=== PATIENT | female | born 1940 | race Caucasian/White ===

== ENCOUNTER 2017-08-08 06:22 | Day surgery (SDC) | payer MEDICARE ==
[~2017-08-08] VITALS: Ht 161.3 cm; Wt 67.1 kg
[~2017-08-08 06:22] MED LIST changes: -AMLO10TA2 PO; -DOCU-131 PO; -ERGO500017 PO; -LEVO112T4 PO; -LEVO175T2 PO; -MAGN64TA9 PO; -OXYC5TAB3 PO; -PANT40TA5 PO; -POLY17PO5 PO; -POTA20TA6 PO
[2017-08-08 07:00] VITALS: BP 139/83
[2017-08-08] MEDS ORDERED: AMLO10TA2 PO (07:07)
[2017-08-08] MEDS ORDERED: LEVO112T4 PO (07:07)
[2017-08-08] MEDS ORDERED: LACTATED RINGERS 1,000 ML IV SCH (07:08)
[2017-08-08] MEDS ORDERED: hydrALAzine 20 MG/ML, 1ML IV PRN (07:30)
[2017-08-08] MEDS ORDERED: LABETALOL 5MG/ML, 20ML IV PRN (07:30)
[2017-08-08] MEDS ORDERED: HYDROmorphone 1 MG/ML, 1ML IV PRN (07:30)
[2017-08-08] MEDS ORDERED: FENTANYL PF 100 MCG/2ML IV PRN (07:30)
[2017-08-08] MEDS ORDERED: MEPERIDINE/PF 25MG/0.5ML IVPush PRN (07:30)
[2017-08-08] MEDS ORDERED: PROMETHAZINE 25 MG/ML, 1ML IV PRN (07:30)
[2017-08-08] MEDS ORDERED: ONDANSETRON 2MG/ML, 2ML IVPush PRN (07:30)
[2017-08-08] MEDS ORDERED: OXYcodone 5 MG/5 ML ORAL.SOL UDC PO PRN (07:30)
[2017-08-08] MEDS ORDERED: PROPOFOL 10 MG/ML, 20ML ONE (07:34)
[2017-08-08] MEDS ORDERED: OXYcodone 5 MG/5 ML ORAL.SOL UDC ONE (08:14)
== END 2017-08-08 09:30 | disposition home or self-care (01) ==
LOC: OUT 06:22
PROVIDERS: ATTEND Surgery
DX: C20 Malignant neoplasm of rectum (principal); K63.5 Polyp of colon; E78.00 Pure hypercholesterolemia, unspecified; I10 Essential (primary) hypertension; E03.9 Hypothyroidism, unspecified; G89.4 Chronic pain syndrome; Z87.39 Personal history of other diseases of the musculoskeletal system and connective tissue; Z98.890 Other specified postprocedural states; Z90.710 Acquired absence of both cervix and uterus
CPT/HCPCS: 45378; 93005; J2704; J7120

== ENCOUNTER → 2017-08-08 | Outpatient (CLI) | payer MEDICARE ==
[~2017-08-08] MED LIST: AMLO10TA2 PO; ATEN100T PO; DOCU-131 PO; ERGO500017 PO; FENO145T32 PO; LEVO112T4 PO; LEVO150T5 PO; LEVO175T2 PO; MAGN64TA9 PO; MAGNESIUM PO; METO10TA82 PO; MULT-658 PO; ONDA4TAB7 PO; OXYC-302 PO; OXYC5TAB3 PO; PANT40TA5 PO; POLY17PO5 PO; POTA20TA6 PO
== END | disposition home or self-care (01) ==
LOC: WOUND 10:20
PROVIDERS: ATTEND Family Medicine
DX: Z93.3 Colostomy status (principal); E03.9 Hypothyroidism, unspecified; I10 Essential (primary) hypertension; E78.5 Hyperlipidemia, unspecified; Z85.048 Personal history of other malignant neoplasm of rectum, rectosigmoid junction, and anus; Z90.710 Acquired absence of both cervix and uterus; Z85.42 Personal history of malignant neoplasm of other parts of uterus
CPT/HCPCS: G0463; WOU0463

== ENCOUNTER 2017-08-10 09:08 | Inpatient (IN) | payer MEDICARE ==
[~2017-08-10] VITALS: Ht 160 cm; Wt 60.2 kg
[~2017-08-10 09:08] MED LIST changes: +AMLO10TA2 PO; +BUPIVACAINE/PF 0.5% ONE; +LEVO112T4 PO
[2017-08-10 09:51] VITALS: BP 125/72
[2017-08-10] MEDS ORDERED: LACTATED RINGERS 1,000 ML IV SCH (10:02)
[2017-08-10] MEDS ORDERED: ROCURONIUM 10 MG/ML,10ML ONE (10:25)
[2017-08-10] MEDS ORDERED: PROPOFOL 10 MG/ML, 20ML ONE (10:25)
[2017-08-10] MEDS ORDERED: ROPIvacaine/PF 0.2%, 20 ML ONE ×2 (10:26)
[2017-08-10] MEDS ORDERED: DEXAMETHASONE 4 MG/ML, 1ML ONE ×4 (10:27→10:54)
[2017-08-10] MEDS ORDERED: EPINEPHRINE 1 MG/ML, 1ML ONE (10:28)
[2017-08-10] MEDS ORDERED: CEFOTETAN PMX 2GM/50ML 50 ML ONE (10:30)
[2017-08-10 10:38] LABS: BASOPHILS % (AUTO) 0 % (0-1); EOSINOPHILS # (AUTO) 0.01 x10^3/uL (0-0.4); EOSINOPHILS % (AUTO) 0 % (1-7); LYMPHOCYTES # (AUTO) 0.84 x10^3/uL (1-3.4); LYMPHOCYTES % (AUTO) 6 % (22-44); MD NO; MEAN CORPUSCULAR HEMOGLOBIN 29.4 pg (27.0-34.8); MEAN CORPUSCULAR HGB CONC 33.1 g/dL (32.4-35.8); MEAN CORPUSCULAR VOLUME 88.9 fL (80-100); MEAN PLATELET VOLUME 7.9 fL (7.4-10.4); MONOCYTES # (AUTO) 0.79 x10^3/uL (0.2-0.8); MONOCYTES % (AUTO) 6 % (2-9); NEUTROPHILS # (AUTO) 12.34 x10^3/uL (1.8-6.8); NEUTROPHILS % (AUTO) 88 % (42-75); PLATELET COUNT 387 x10^3/uL (130-400); RED BLOOD COUNT 3.02 x10^6/uL (3.82-5.3); RED CELL DISTRIBUTION WIDTH 17.4 % (9.6-15.2)
[2017-08-10 10:46] LABS: INTERNATIONAL NORMALIZED RATIO 1.02 (0.93-1.1); PROTHROMBIN TIME 10.5 Seconds (9.6-11.5)
[2017-08-10 10:51] LABS: CALCIUM 7.9 mg/dL (8.5-10.1); CHLORIDE 102 mmol/L (98-107)
[2017-08-10] MEDS ORDERED: FENTANYL PF 100 MCG/2ML ONE ×2 (10:53)
[2017-08-10] MEDS ORDERED: MIDAZOLAM 1 MG/ML, 2ML ONE (10:53)
[2017-08-10] MEDS ORDERED: ONDANSETRON 2MG/ML, 2ML ONE (10:54)
[2017-08-10 11:08] LABS: ANION GAP 11 mmol/L (5-15)
[2017-08-10] MEDS ORDERED: hydrALAzine 20 MG/ML, 1ML IVPush PRN (14:00)
[2017-08-10] MEDS ORDERED: POLYETHYLENE GLYCOL 17 GM PACKET PO PRN (14:00)
[2017-08-10] MEDS ORDERED: OXYcodone/APAP 5/325MG TABLET PO PRN (14:30)
[2017-08-10 14:52] VITALS: BP 102/63
[2017-08-10] MEDS: morphine SULFATE 10 MG/ML, 1ML IVPush PRN ×2 (15:01→19:49)
[2017-08-10 15:14] LABS: HEMOGLOBIN A1C 5.3 % (4.2-6.3)
[2017-08-10 15:23] LABS: FREE T4 (FREE THYROXINE) 0.17 ng/dL (0.76-1.46); THYROID STIMULATING HORMONE 95.3 mIU/L (0.358-3.740)
[2017-08-10] MEDS ORDERED: IRON SUCROSE COMPLEX 100MG/5ML IV ONE (15:30)
[2017-08-10] MEDS ORDERED: POTASSIUM CHLORIDE 40 MEQ in SODIUM CHLORIDE 0.9% 500 ML IV ONE ×2 (15:30→23:00)
[2017-08-10] MEDS: OXYcodone IR 5MG TABLET PO PRN ×2 (16:19→21:42)
[2017-08-10 16:56] LABS: MICROSCOPIC AUTO
[2017-08-10 16:59] LABS: CULTURE INDICATED? YES
[2017-08-10 19:17] VITALS: BP 118/66
[2017-08-10] MEDS: SODIUM CHLORIDE 0.9% 1,000 ML IV SCH (21:00)
[2017-08-10] MEDS ORDERED: DOCUSATE 100 MG CAPSULE PO PRN (21:00)
[2017-08-11 00:38] VITALS: BP 100/55
[2017-08-11] MEDS: morphine SULFATE 10 MG/ML, 1ML IVPush PRN ×5 (01:28→21:12)
[2017-08-11] MEDS: OXYcodone IR 5MG TABLET PO PRN ×5 (02:52→22:03)
[2017-08-11 05:18] LABS: MEAN CORPUSCULAR HEMOGLOBIN 29.9 pg (27.0-34.8); MEAN CORPUSCULAR HGB CONC 33.3 g/dL (32.4-35.8); MEAN CORPUSCULAR VOLUME 89.9 fL (80-100); MEAN PLATELET VOLUME 8.1 fL (7.4-10.4); PLATELET COUNT 427 x10^3/uL (130-400); RED BLOOD COUNT 3.09 x10^6/uL (3.82-5.3); RED CELL DISTRIBUTION WIDTH 17.7 % (9.6-15.2)
[2017-08-11 05:26] LABS: ALBUMIN 2.1 g/dL (3.4-5.0); ANION GAP 10 mmol/L (5-15); CALCIUM 7.7 mg/dL (8.5-10.1); CHLORIDE 105 mmol/L (98-107)
[2017-08-11 05:38] LABS: ALANINE AMINOTRANSFERASE 9 U/L (12-78); ALKALINE PHOSPHATASE 189 U/L (45-117); BILIRUBIN,TOTAL 0.4 mg/dL (0.2-1.0); CHOL/HDL RATIO 3.4; CHOLESTEROL, TOTAL 133 mg/dL (140-239); CREATININE 0.82 mg/dL (0.55-1.02); HDL CHOL % 29 % (28-40); HDL CHOLESTEROL (DIRECT) 39 mg/dL (40-60); LDL CHOLESTEROL,CALCULATED 56 mg/dL (54-169); LDL/HDL RATIO 1.4 (0.5-3.0); TOTAL PROTEIN 5.4 g/dL (6.4-8.2); TRIGLYCERIDES 191 mg/dL (50-200); VLDL CHOLESTEROL 38 mg/dL (0-25)
[2017-08-11] MEDS ORDERED: LEVOTHYROXINE 112 MCG TABLET PO SCH (06:00)
[2017-08-11 06:09] LABS: BASOPHILS # (AUTO) 0.03 x10^3/uL (0-0.1); BASOPHILS % (AUTO) 0 % (0-1); EOSINOPHILS # (AUTO) 0.02 x10^3/uL (0-0.4); EOSINOPHILS % (AUTO) 0 % (1-7); LYMPHOCYTES # (AUTO) 1.88 x10^3/uL (1-3.4); LYMPHOCYTES % (AUTO) 10 % (22-44); MD SCAN; MONOCYTES # (AUTO) 1.07 x10^3/uL (0.2-0.8); MONOCYTES % (AUTO) 6 % (2-9); NEUTROPHILS # (AUTO) 15.17 x10^3/uL (1.8-6.8); NEUTROPHILS % (AUTO) 84 % (42-75)
[2017-08-11 07:33] VITALS: BP 114/67
[2017-08-11] MEDS: FENOFIBRATE 145 MG TABLET PO SCH (08:11)
[2017-08-11] MEDS: ATENOLOL 100 MG TABLET PO SCH (08:11)
[2017-08-11] MEDS: AMLODIPINE 5 MG TABLET PO SCH (08:11)
[2017-08-11] MEDS: SODIUM CHLORIDE 0.9% 1,000 ML IV SCH (09:45)
[2017-08-11] MEDS ORDERED: POTASSIUM CHLORIDE 40 MEQ in SODIUM CHLORIDE 0.9% 500 ML IV ONE ×2 (10:30→18:00)
[2017-08-11] MEDS: ERGOCALCIFEROL 50,000 UNIT CAPSULE PO SCH (12:17)
[2017-08-11 14:29] VITALS: BP 101/69
[2017-08-11 19:08] VITALS: BP 110/55
[2017-08-12 00:26] VITALS: BP 107/63
[2017-08-12] MEDS: morphine SULFATE 10 MG/ML, 1ML IVPush PRN ×3 (00:27→09:49)
[2017-08-12] MEDS: OXYcodone IR 5MG TABLET PO PRN ×3 (05:37→20:16)
[2017-08-12] MEDS: LEVOTHYROXINE 150 MCG TABLET PO SCH (05:40)
[2017-08-12 05:45] LABS: CALCIUM 7.6 mg/dL (8.5-10.1); CHLORIDE 107 mmol/L (98-107)
[2017-08-12 05:48] LABS: ANION GAP 9 mmol/L (5-15); CREATININE 0.66 mg/dL (0.55-1.02)
[2017-08-12 07:03] LABS: BASOPHILS # (AUTO) 0.02 x10^3/uL (0-0.1); BASOPHILS % (AUTO) 0 % (0-1); EOSINOPHILS # (AUTO) 0.01 x10^3/uL (0-0.4); EOSINOPHILS % (AUTO) 0 % (1-7); LYMPHOCYTES # (AUTO) 1.37 x10^3/uL (1-3.4); LYMPHOCYTES % (AUTO) 9 % (22-44); MD NO; MEAN CORPUSCULAR HEMOGLOBIN 29.6 pg (27.0-34.8); MEAN CORPUSCULAR HGB CONC 33.2 g/dL (32.4-35.8); MEAN CORPUSCULAR VOLUME 89.3 fL (80-100); MEAN PLATELET VOLUME 8.7 fL (7.4-10.4); MONOCYTES # (AUTO) 0.81 x10^3/uL (0.2-0.8); MONOCYTES % (AUTO) 6 % (2-9); NEUTROPHILS # (AUTO) 12.31 x10^3/uL (1.8-6.8); NEUTROPHILS % (AUTO) 85 % (42-75); PLATELET COUNT 331 x10^3/uL (130-400); RED BLOOD COUNT 2.73 x10^6/uL (3.82-5.3); RED CELL DISTRIBUTION WIDTH 17.9 % (9.6-15.2)
[2017-08-12 07:54] VITALS: BP 110/57
[2017-08-12] MEDS: ATENOLOL 100 MG TABLET PO SCH (09:01)
[2017-08-12] MEDS: AMLODIPINE 5 MG TABLET PO SCH (09:02)
[2017-08-12] MEDS: FENOFIBRATE 145 MG TABLET PO SCH (09:02)
[2017-08-12] MEDS ORDERED: POTASSIUM PHOSPHATE 44 MEQ in SODIUM CHLORIDE 0.9% 500 ML IV ONE (12:00)
[2017-08-12] MEDS ORDERED: POTASSIUM CHLORIDE 40 MEQ in SODIUM CHLORIDE 0.9% 500 ML IV ONE (12:00)
[2017-08-12] MEDS ORDERED: POTASSIUM PHOSPHATE IV ONE (12:30)
[2017-08-12] MEDS ORDERED: SODIUM CHLORIDE 0.9% IV ONE (12:30)
[2017-08-12] MEDS ORDERED: POTASSIUM CHLORIDE IV ONE (12:30)
[2017-08-12] MEDS: POTASSIUM CHLORIDE 20 MEQ TAB.ER.PRT PO SCH ×2 (12:53→20:17)
[2017-08-12] MEDS: OxyconTIN ER 10 MG TAB.ER PO SCH (12:53)
[2017-08-12 13:11] VITALS: BP 97/46
[2017-08-13] VITALS (9 sets, daily range): BP systolic 88–121; BP diastolic 47–81
[2017-08-13] MEDS: OxyconTIN ER 10 MG TAB.ER PO SCH ×2 (00:44→12:18)
[2017-08-13] MEDS: OXYcodone IR 5MG TABLET PO PRN ×3 (03:42→20:18)
[2017-08-13] MEDS: LEVOTHYROXINE 150 MCG TABLET PO SCH (05:27)
[2017-08-13 05:34] LABS: BASOPHILS % (AUTO) 1 % (0-1); EOSINOPHILS # (AUTO) 0.01 x10^3/uL (0-0.4); EOSINOPHILS % (AUTO) 0 % (1-7); LYMPHOCYTES # (AUTO) 1.41 x10^3/uL (1-3.4); LYMPHOCYTES % (AUTO) 10 % (22-44); MD NO; MEAN CORPUSCULAR HGB CONC 33.5 g/dL (32.4-35.8); MEAN CORPUSCULAR VOLUME 89.8 fL (80-100); MEAN PLATELET VOLUME 8.4 fL (7.4-10.4); MONOCYTES # (AUTO) 0.86 x10^3/uL (0.2-0.8); MONOCYTES % (AUTO) 6 % (2-9); NEUTROPHILS # (AUTO) 11.36 x10^3/uL (1.8-6.8); NEUTROPHILS % (AUTO) 83 % (42-75); PLATELET COUNT 348 x10^3/uL (130-400); RED BLOOD COUNT 2.63 x10^6/uL (3.82-5.3); RED CELL DISTRIBUTION WIDTH 18.2 % (9.6-15.2)
[2017-08-13 05:40] LABS: CHLORIDE 107 mmol/L (98-107)
[2017-08-13 05:54] LABS: ANION GAP 8 mmol/L (5-15); CALCIUM 7.8 mg/dL (8.5-10.1); CREATININE 0.62 mg/dL (0.55-1.02)
[2017-08-13] MEDS ORDERED: MAGNESIUM SULFATE PMX 2GM/50ML 50 ML IV ONE (09:00)
[2017-08-13] MEDS: ATENOLOL 100 MG TABLET PO SCH (09:00)
[2017-08-13] MEDS: AMLODIPINE 5 MG TABLET PO SCH (09:11)
[2017-08-13] MEDS: POTASSIUM CHLORIDE 20 MEQ TAB.ER.PRT PO SCH ×2 (09:11→20:18)
[2017-08-13] MEDS: FENOFIBRATE 145 MG TABLET PO SCH (09:11)
[2017-08-13] MEDS: morphine SULFATE 10 MG/ML, 1ML IVPush PRN ×3 (09:11→23:00)
[2017-08-14] VITALS (14 sets, daily range): BP systolic 92–127; BP diastolic 44–73
[2017-08-14] MEDS: OxyconTIN ER 20 MG TAB.ER PO SCH ×2 (01:16→12:21)
[2017-08-14] MEDS: LEVOTHYROXINE 150 MCG TABLET PO SCH (05:26)
[2017-08-14] MEDS: OXYcodone IR 5MG TABLET PO PRN ×3 (05:26→20:46)
[2017-08-14 05:57] LABS: BASOPHILS # (AUTO) 0.03 x10^3/uL (0-0.1); BASOPHILS % (AUTO) 0 % (0-1); EOSINOPHILS # (AUTO) 0.02 x10^3/uL (0-0.4); EOSINOPHILS % (AUTO) 0 % (1-7); LYMPHOCYTES # (AUTO) 1.25 x10^3/uL (1-3.4); LYMPHOCYTES % (AUTO) 10 % (22-44); MD NO; MEAN CORPUSCULAR HEMOGLOBIN 29.9 pg (27.0-34.8); MEAN CORPUSCULAR HGB CONC 33.2 g/dL (32.4-35.8); MEAN CORPUSCULAR VOLUME 89.9 fL (80-100); MEAN PLATELET VOLUME 8.2 fL (7.4-10.4); MONOCYTES # (AUTO) 0.85 x10^3/uL (0.2-0.8); MONOCYTES % (AUTO) 7 % (2-9); NEUTROPHILS # (AUTO) 10.17 x10^3/uL (1.8-6.8); NEUTROPHILS % (AUTO) 83 % (42-75); PLATELET COUNT 339 x10^3/uL (130-400); RED BLOOD COUNT 2.54 x10^6/uL (3.82-5.3); RED CELL DISTRIBUTION WIDTH 18.3 % (9.6-15.2)
[2017-08-14 06:02] LABS: CHLORIDE 106 mmol/L (98-107)
[2017-08-14 06:05] LABS: ANION GAP 7 mmol/L (5-15); CALCIUM 7.9 mg/dL (8.5-10.1); CREATININE 0.67 mg/dL (0.55-1.02)
[2017-08-14] MEDS: ATENOLOL 100 MG TABLET PO SCH (09:00)
[2017-08-14] MEDS: AMLODIPINE 5 MG TABLET PO SCH (09:55)
[2017-08-14] MEDS: POTASSIUM CHLORIDE 20 MEQ TAB.ER.PRT PO SCH ×2 (09:55→20:46)
[2017-08-14] MEDS: FENOFIBRATE 145 MG TABLET PO SCH (09:55)
[2017-08-14] MEDS: morphine SULFATE 10 MG/ML, 1ML IVPush PRN ×2 (18:11→22:39)
[2017-08-15 01:58] VITALS: BP 106/56
[2017-08-15] MEDS: OxyconTIN ER 20 MG TAB.ER PO SCH ×2 (02:02→12:44)
[2017-08-15] MEDS: LEVOTHYROXINE 150 MCG TABLET PO SCH (05:14)
[2017-08-15] MEDS: OXYcodone IR 5MG TABLET PO PRN ×5 (05:15→23:04)
[2017-08-15 07:23] LABS: BASOPHILS # (AUTO) 0.03 x10^3/uL (0-0.1); BASOPHILS % (AUTO) 0 % (0-1); EOSINOPHILS # (AUTO) 0.01 x10^3/uL (0-0.4); EOSINOPHILS % (AUTO) 0 % (1-7); LYMPHOCYTES # (AUTO) 1.06 x10^3/uL (1-3.4); LYMPHOCYTES % (AUTO) 8 % (22-44); MD NO; MEAN CORPUSCULAR HEMOGLOBIN 30.5 pg (27.0-34.8); MEAN CORPUSCULAR HGB CONC 34.4 g/dL (32.4-35.8); MEAN CORPUSCULAR VOLUME 88.8 fL (80-100); MEAN PLATELET VOLUME 7.9 fL (7.4-10.4); MONOCYTES # (AUTO) 0.99 x10^3/uL (0.2-0.8); MONOCYTES % (AUTO) 8 % (2-9); NEUTROPHILS % (AUTO) 84 % (42-75); PLATELET COUNT 328 x10^3/uL (130-400); RED BLOOD COUNT 3.53 x10^6/uL (3.82-5.3); RED CELL DISTRIBUTION WIDTH 18.1 % (9.6-15.2)
[2017-08-15 07:27] VITALS: BP 125/73
[2017-08-15 07:40] LABS: ANION GAP 7 mmol/L (5-15); CALCIUM 7.9 mg/dL (8.5-10.1); CHLORIDE 106 mmol/L (98-107); CREATININE 0.71 mg/dL (0.55-1.02)
[2017-08-15] MEDS: FENOFIBRATE 145 MG TABLET PO SCH (09:42)
[2017-08-15] MEDS: AMLODIPINE 5 MG TABLET PO SCH (09:42)
[2017-08-15] MEDS: POTASSIUM CHLORIDE 20 MEQ TAB.ER.PRT PO SCH ×2 (09:42→20:53)
[2017-08-15] MEDS: ATENOLOL 100 MG TABLET PO SCH (09:42)
[2017-08-15 14:03] VITALS: BP 92/54
[2017-08-15 20:59] VITALS: BP 119/61
[2017-08-16 00:23] VITALS: BP 104/62
[2017-08-16] MEDS: OxyconTIN ER 20 MG TAB.ER PO SCH ×2 (00:26→11:46)
[2017-08-16] MEDS: morphine SULFATE 10 MG/ML, 1ML IVPush PRN ×4 (03:11→20:20)
[2017-08-16] MEDS: LEVOTHYROXINE 150 MCG TABLET PO SCH (06:00)
[2017-08-16 06:32] LABS: BASOPHILS # (AUTO) 0.03 x10^3/uL (0-0.1); BASOPHILS % (AUTO) 0 % (0-1); EOSINOPHILS # (AUTO) 0.02 x10^3/uL (0-0.4); EOSINOPHILS % (AUTO) 0 % (1-7); LYMPHOCYTES # (AUTO) 1.37 x10^3/uL (1-3.4); LYMPHOCYTES % (AUTO) 11 % (22-44); MD NO; MEAN CORPUSCULAR HEMOGLOBIN 30.3 pg (27.0-34.8); MEAN CORPUSCULAR HGB CONC 33.8 g/dL (32.4-35.8); MEAN CORPUSCULAR VOLUME 89.5 fL (80-100); MEAN PLATELET VOLUME 8.2 fL (7.4-10.4); MONOCYTES # (AUTO) 1.08 x10^3/uL (0.2-0.8); MONOCYTES % (AUTO) 8 % (2-9); NEUTROPHILS # (AUTO) 10.35 x10^3/uL (1.8-6.8); NEUTROPHILS % (AUTO) 81 % (42-75); PLATELET COUNT 326 x10^3/uL (130-400); RED CELL DISTRIBUTION WIDTH 17.7 % (9.6-15.2)
[2017-08-16 06:36] LABS: INTERNATIONAL NORMALIZED RATIO 1.04 (0.93-1.1); PROTHROMBIN TIME 10.7 Seconds (9.6-11.5)
[2017-08-16 06:43] LABS: ANION GAP 6 mmol/L (5-15); CALCIUM 8.1 mg/dL (8.5-10.1); CHLORIDE 104 mmol/L (98-107); CREATININE 0.71 mg/dL (0.55-1.02)
[2017-08-16 06:45] VITALS: BP 108/60
[2017-08-16] MEDS: POTASSIUM CHLORIDE 20 MEQ TAB.ER.PRT PO SCH ×2 (07:22→21:00)
[2017-08-16] MEDS: ATENOLOL 100 MG TABLET PO SCH (07:25)
[2017-08-16] MEDS: FENOFIBRATE 145 MG TABLET PO SCH (07:25)
[2017-08-16] MEDS: AMLODIPINE 5 MG TABLET PO SCH (07:25)
[2017-08-16] MEDS ORDERED: EPINEPHRINE 1 MG/ML, 1ML ONE (07:57)
[2017-08-16] MEDS ORDERED: BUPIVACAINE/PF 0.25% ONE (07:57)
[2017-08-16] MEDS ORDERED: DEXAMETHASONE 4 MG/ML, 1ML ONE (07:57)
[2017-08-16] MEDS ORDERED: BUPIVACAINE/PF 0.5% ONE (10:30)
[2017-08-16] MEDS ORDERED: INDOCYANINE GREEN 25 MG VIAL ONE (10:31)
[2017-08-16] MEDS ORDERED: MIDAZOLAM 1 MG/ML, 2ML ONE (10:33)
[2017-08-16] MEDS ORDERED: FENTANYL PF 100 MCG/2ML ONE (10:34)
[2017-08-16] MEDS ORDERED: CEFOTETAN PMX 2GM/50ML 50 ML ONE (10:59)
[2017-08-16] MEDS ORDERED: ROCURONIUM 10 MG/ML,10ML ONE (12:19)
[2017-08-16] MEDS ORDERED: PROPOFOL 10 MG/ML, 20ML ONE (12:19)
[2017-08-16] MEDS ORDERED: SUCCINYLCHOLINE 20 MG/ML, 10ML ONE (12:20)
[2017-08-16] MEDS ORDERED: NOREPINEPHRINE 1 MG/ML, 4ML ONE (14:39)
[2017-08-16] MEDS ORDERED: NOREPINEPHRINE 4 MG in SODIUM CHLORIDE 0.9% 246 ML IV PRN (14:49)
[2017-08-16] MEDS ORDERED: FENTANYL PF 100 MCG/2ML IVPush PRN (17:00)
[2017-08-16] MEDS ORDERED: LIDOCAINE-MPF 1%, 2ML ENDO PRN (17:00)
[2017-08-16] MEDS ORDERED: LACTULOSE 20 GM/30 ML UDC NG PRN (17:00)
[2017-08-16] MEDS ORDERED: PROPOFOL 100 ML IV PRN (17:00)
[2017-08-16] MEDS ORDERED: PHARMACY MAY ADJ FOR RENAL FX MC SCH (17:00)
[2017-08-16] MEDS ORDERED: SENNOSIDES 8.8 MG/5 ML ORAL SOL NG PRN (17:00)
[2017-08-16] MEDS ORDERED: SODIUM CHLORIDE 0.9% 1,000ML IVBOLUS ONE (17:00)
[2017-08-16] MEDS ORDERED: SENNA/DOCUSATE TABLET NG PRN (17:00)
[2017-08-16] MEDS ORDERED: BISACODYL 10 MG SUPP PR PRN (17:00)
[2017-08-16] MEDS: ALBUTEROL/IPRATROPIUM 2.5MG/0.5MG, 3 ML INLINE SCH ×2 (18:05→22:20)
[2017-08-16] MEDS: SODIUM CHLORIDE 0.9% 2,000 ML IV SCH (18:37)
[2017-08-16] MEDS: FAMOTIDINE 20 MG/2 ML IV SCH (18:37)
[2017-08-16] MEDS: PIPERACILLIN/TAZO/PMX 3.375GM 50 ML IV SCH ×2 (18:38→22:59)
[2017-08-17] MEDS: OxyconTIN ER 20 MG TAB.ER PO SCH ×2 (00:30→12:15)
[2017-08-17] MEDS: ALBUTEROL/IPRATROPIUM 2.5MG/0.5MG, 3 ML INLINE SCH ×3 (02:25→11:00)
[2017-08-17 03:10] LABS: ALANINE AMINOTRANSFERASE 6 U/L (12-78); ALBUMIN 1.4 g/dL (3.4-5.0); ANION GAP 12 mmol/L (5-15); CALCIUM 7.4 mg/dL (8.5-10.1); CHLORIDE 109 mmol/L (98-107)
[2017-08-17 03:12] LABS: BASOPHILS # (AUTO) 0.02 x10^3/uL (0-0.1); BASOPHILS % (AUTO) 0 % (0-1); EOSINOPHILS % (AUTO) 0 % (1-7); LYMPHOCYTES # (AUTO) 1.44 x10^3/uL (1-3.4); LYMPHOCYTES % (AUTO) 7 % (22-44); MD NO; MEAN CORPUSCULAR HEMOGLOBIN 30.2 pg (27.0-34.8); MEAN CORPUSCULAR HGB CONC 33.6 g/dL (32.4-35.8); MEAN CORPUSCULAR VOLUME 89.8 fL (80-100); MEAN PLATELET VOLUME 8.3 fL (7.4-10.4); MONOCYTES # (AUTO) 0.51 x10^3/uL (0.2-0.8); MONOCYTES % (AUTO) 3 % (2-9); NEUTROPHILS # (AUTO) 18.22 x10^3/uL (1.8-6.8); NEUTROPHILS % (AUTO) 90 % (42-75); PLATELET COUNT 383 x10^3/uL (130-400); RED BLOOD COUNT 3.55 x10^6/uL (3.82-5.3); RED CELL DISTRIBUTION WIDTH 17.4 % (9.6-15.2)
[2017-08-17 03:13] LABS: ALKALINE PHOSPHATASE 101 U/L (45-117); BILIRUBIN,TOTAL 0.5 mg/dL (0.2-1.0); CREATININE 0.75 mg/dL (0.55-1.02); TOTAL PROTEIN 4.4 g/dL (6.4-8.2)
[2017-08-17] MEDS: morphine SULFATE 10 MG/ML, 1ML IVPush PRN ×3 (03:31→22:10)
[2017-08-17] MEDS: SODIUM CHLORIDE 0.9% 2,000 ML IV SCH ×2 (03:48→10:24)
[2017-08-17 04:47] VITALS: BP 127/57
[2017-08-17] MEDS: PIPERACILLIN/TAZO/PMX 3.375GM 50 ML IV SCH ×4 (04:53→23:01)
[2017-08-17] MEDS: FAMOTIDINE 20 MG/2 ML IV SCH (04:53)
[2017-08-17] MEDS: LEVOTHYROXINE 150 MCG TABLET PO SCH (06:00)
[2017-08-17] MEDS ORDERED: SODIUM CHLORIDE 0.9%, 500ML IVBOLUS ONE ×2 (07:45→15:00)
[2017-08-17] MEDS: FENOFIBRATE 145 MG TABLET PO SCH (09:00)
[2017-08-17] MEDS ORDERED: MAGNESIUM SULFATE PMX 2GM/50ML 50 ML IVPB ONE (09:00)
[2017-08-17] MEDS: AMLODIPINE 5 MG TABLET PO SCH (09:00)
[2017-08-17] MEDS: ATENOLOL 100 MG TABLET PO SCH (09:00)
[2017-08-17] MEDS ORDERED: POTASSIUM CHLORIDE 40 MEQ in SODIUM CHLORIDE 0.9% 100 ML IV ONE (09:00)
[2017-08-17] MEDS: ONDANSETRON 2MG/ML, 2ML IVPush PRN (12:11)
[2017-08-17] MEDS: LIOTHYRONINE 25 MCG TABLET PO SCH (13:00)
[2017-08-17] MEDS: FAMOTIDINE 20 MG/2 ML IVPush SCH (21:51)
[2017-08-18] MEDS: OxyconTIN ER 20 MG TAB.ER PO SCH ×2 (00:30→16:06)
[2017-08-18] MEDS: ONDANSETRON 2MG/ML, 2ML IVPush PRN ×3 (01:01→20:49)
[2017-08-18 04:39] LABS: ANION GAP 7 mmol/L (5-15); CALCIUM 7.6 mg/dL (8.5-10.1); CHLORIDE 106 mmol/L (98-107); CREATININE 0.53 mg/dL (0.55-1.02)
[2017-08-18 04:53] LABS: FREE T4 (FREE THYROXINE) 0.59 ng/dL (0.76-1.46)
[2017-08-18 05:05] LABS: BASOPHILS # (AUTO) 0.01 x10^3/uL (0-0.1); BASOPHILS % (AUTO) 0 % (0-1); EOSINOPHILS % (AUTO) 0 % (1-7); LYMPHOCYTES # (AUTO) 0.69 x10^3/uL (1-3.4); LYMPHOCYTES % (AUTO) 5 % (22-44); MD NO; MEAN CORPUSCULAR HGB CONC 33.1 g/dL (32.4-35.8); MEAN CORPUSCULAR VOLUME 90.5 fL (80-100); MEAN PLATELET VOLUME 8.2 fL (7.4-10.4); MONOCYTES # (AUTO) 0.72 x10^3/uL (0.2-0.8); MONOCYTES % (AUTO) 5 % (2-9); NEUTROPHILS # (AUTO) 14.01 x10^3/uL (1.8-6.8); NEUTROPHILS % (AUTO) 91 % (42-75); PLATELET COUNT 315 x10^3/uL (130-400); RED BLOOD COUNT 3.01 x10^6/uL (3.82-5.3)
[2017-08-18] MEDS: PIPERACILLIN/TAZO/PMX 3.375GM 50 ML IV SCH ×4 (05:10→23:45)
[2017-08-18] MEDS: SODIUM CHLORIDE 0.9% 2,000 ML IV SCH ×2 (05:12→17:23)
[2017-08-18 06:44] VITALS: BP 138/64
[2017-08-18] MEDS ORDERED: ENOXAPARIN 40 MG/0.4 ML SQ SCH (07:30)
[2017-08-18] MEDS: morphine SULFATE 10 MG/ML, 1ML IVPush PRN ×2 (07:49→20:50)
[2017-08-18] MEDS ORDERED: POTASSIUM CHLORIDE 10% 40 MEQ/30 ML UDC PO SCH (09:00)
[2017-08-18] MEDS: ERGOCALCIFEROL 50,000 UNIT CAPSULE PO SCH (09:54)
[2017-08-18] MEDS: LIOTHYRONINE 25 MCG TABLET PO SCH (09:54)
[2017-08-18] MEDS: LEVOTHYROXINE 150 MCG TABLET PO SCH (09:54)
[2017-08-18] MEDS: FENOFIBRATE 145 MG TABLET PO SCH (09:54)
[2017-08-18] MEDS: FAMOTIDINE 20 MG/2 ML IVPush SCH (09:54)
[2017-08-18] MEDS: HEPARIN 5,000 UNITS/ML, 1ML SQ SCH ×3 (09:55→20:54)
[2017-08-18] MEDS: ATENOLOL 100 MG TABLET PO SCH (10:07)
[2017-08-18] MEDS ORDERED: POTASSIUM CHLORIDE 40 MEQ in SODIUM CHLORIDE 0.9% 100 ML IV ONE ×2 (11:00→19:00)
[2017-08-18] MEDS ORDERED: OxyconTIN ER 10 MG TAB.ER ONE (12:40)
[2017-08-19] MEDS: ONDANSETRON 2MG/ML, 2ML IVPush PRN ×5 (02:52→22:11)
[2017-08-19 03:05] LABS: BASOPHILS # (AUTO) 0.08 x10^3/uL (0-0.1); BASOPHILS % (AUTO) 1 % (0-1); EOSINOPHILS % (AUTO) 0 % (1-7); LYMPHOCYTES # (AUTO) 1.14 x10^3/uL (1-3.4); LYMPHOCYTES % (AUTO) 9 % (22-44); MD NO; MEAN CORPUSCULAR HEMOGLOBIN 29.9 pg (27.0-34.8); MEAN CORPUSCULAR HGB CONC 33.7 g/dL (32.4-35.8); MEAN CORPUSCULAR VOLUME 88.8 fL (80-100); MEAN PLATELET VOLUME 7.8 fL (7.4-10.4); MONOCYTES % (AUTO) 7 % (2-9); NEUTROPHILS # (AUTO) 10.63 x10^3/uL (1.8-6.8); NEUTROPHILS % (AUTO) 83 % (42-75); PLATELET COUNT 331 x10^3/uL (130-400); RED BLOOD COUNT 2.88 x10^6/uL (3.82-5.3); RED CELL DISTRIBUTION WIDTH 17.5 % (9.6-15.2)
[2017-08-19 03:14] LABS: ANION GAP 8 mmol/L (5-15); CALCIUM 7.4 mg/dL (8.5-10.1); CHLORIDE 103 mmol/L (98-107); CREATININE 0.46 mg/dL (0.55-1.02)
[2017-08-19] MEDS: OxyconTIN ER 20 MG TAB.ER PO SCH ×2 (04:00→16:00)
[2017-08-19] MEDS ORDERED: OxyconTIN ER 10 MG TAB.ER ONE (04:08)
[2017-08-19] MEDS: PIPERACILLIN/TAZO/PMX 3.375GM 50 ML IV SCH ×4 (04:43→21:48)
[2017-08-19] MEDS: SODIUM CHLORIDE 0.9% 2,000 ML IV SCH (04:43)
[2017-08-19 05:12] VITALS: BP 144/57
[2017-08-19] MEDS: morphine SULFATE 10 MG/ML, 1ML IVPush PRN ×2 (05:31→22:11)
[2017-08-19] MEDS: LEVOTHYROXINE 150 MCG TABLET PO SCH (06:00)
[2017-08-19 07:07] VITALS: BP 137/69
[2017-08-19 08:00] VITALS: BP 134/63
[2017-08-19] MEDS ORDERED: ONDANSETRON 2MG/ML, 2ML ONE (08:05)
[2017-08-19] MEDS ORDERED: POTASSIUM CHLORIDE 40 MEQ in SODIUM CHLORIDE 0.9% 500 ML IV ONE ×2 (08:30→11:00)
[2017-08-19] MEDS: LIOTHYRONINE 25 MCG TABLET PO SCH (09:00)
[2017-08-19] MEDS: ATENOLOL 100 MG TABLET PO SCH (09:00)
[2017-08-19] MEDS: FENOFIBRATE 145 MG TABLET PO SCH (09:00)
[2017-08-19] MEDS: HEPARIN 5,000 UNITS/ML, 1ML SQ SCH ×3 (10:05→21:48)
[2017-08-19 13:31] VITALS: BP_SYST 110; BP_SYST 144; BP_DIAS 67; BP_DIAS 75
[2017-08-19 19:14] VITALS: BP 136/66
[2017-08-20 02:35] VITALS: BP 138/66
[2017-08-20] MEDS ORDERED: LEVOTHYROXINE 75 MCG TABLET ONE (03:29)
[2017-08-20] MEDS: LEVOTHYROXINE 150 MCG TABLET PO SCH (03:35)
[2017-08-20] MEDS: OxyconTIN ER 20 MG TAB.ER PO SCH ×2 (03:35→16:28)
[2017-08-20] MEDS: PIPERACILLIN/TAZO/PMX 3.375GM 50 ML IV SCH ×3 (03:36→18:09)
[2017-08-20 04:14] LABS: BASOPHILS # (AUTO) 0.01 x10^3/uL (0-0.1); BASOPHILS % (AUTO) 0 % (0-1); EOSINOPHILS % (AUTO) 0 % (1-7); LYMPHOCYTES # (AUTO) 0.89 x10^3/uL (1-3.4); LYMPHOCYTES % (AUTO) 11 % (22-44); MD NO; MEAN CORPUSCULAR HEMOGLOBIN 30.3 pg (27.0-34.8); MEAN CORPUSCULAR HGB CONC 34.3 g/dL (32.4-35.8); MEAN CORPUSCULAR VOLUME 88.3 fL (80-100); MEAN PLATELET VOLUME 7.8 fL (7.4-10.4); MONOCYTES # (AUTO) 0.68 x10^3/uL (0.2-0.8); MONOCYTES % (AUTO) 8 % (2-9); NEUTROPHILS # (AUTO) 6.58 x10^3/uL (1.8-6.8); NEUTROPHILS % (AUTO) 81 % (42-75); PLATELET COUNT 322 x10^3/uL (130-400); RED BLOOD COUNT 2.93 x10^6/uL (3.82-5.3); RED CELL DISTRIBUTION WIDTH 17.6 % (9.6-15.2)
[2017-08-20 04:17] LABS: CALCIUM 7.2 mg/dL (8.5-10.1); CHLORIDE 95 mmol/L (98-107); CREATININE 0.41 mg/dL (0.55-1.02)
[2017-08-20 04:28] LABS: ANION GAP 8 mmol/L (5-15)
[2017-08-20] MEDS ORDERED: POTASSIUM CHLORIDE 40 MEQ in SODIUM CHLORIDE 0.9% 500 ML IV ONE ×2 (07:00→17:00)
[2017-08-20 07:50] VITALS: BP 126/66
[2017-08-20] MEDS: HEPARIN 5,000 UNITS/ML, 1ML SQ SCH ×3 (08:08→21:16)
[2017-08-20] MEDS: LIOTHYRONINE 25 MCG TABLET PO SCH (08:08)
[2017-08-20] MEDS: FENOFIBRATE 145 MG TABLET PO SCH (08:08)
[2017-08-20] MEDS: ATENOLOL 100 MG TABLET PO SCH (08:09)
[2017-08-20] MEDS ORDERED: POTASSIUM PHOSPHATE 44 MEQ in SODIUM CHLORIDE 0.9% 500 ML IV ONE (10:00)
[2017-08-20] MEDS ORDERED: MAGNESIUM SULFATE PMX 2GM/50ML 50 ML IV ONE (10:00)
[2017-08-20] MEDS: MAGNESIUM CHLORIDE 64 MG TABLET.DR PO SCH ×2 (10:30→21:16)
[2017-08-20 13:51] VITALS: BP 123/59
[2017-08-20] MEDS: ONDANSETRON 2MG/ML, 2ML IVPush PRN (16:28)
[2017-08-20] MEDS ORDERED: POTASSIUM CHLORIDE 20 MEQ TAB.ER.PRT PO SCH (17:00)
[2017-08-20 20:00] VITALS: BP 110/66
[2017-08-20] MEDS: morphine SULFATE 10 MG/ML, 1ML IVPush PRN (21:16)
[2017-08-20] MEDS: SODIUM CHLORIDE 0.9% 2,000 ML IV SCH (21:17)
[2017-08-21] MEDS: PIPERACILLIN/TAZO/PMX 3.375GM 50 ML IV SCH ×4 (01:45→21:54)
[2017-08-21] MEDS: ONDANSETRON 2MG/ML, 2ML IVPush PRN (01:55)
[2017-08-21 02:00] VITALS: BP 149/73
[2017-08-21] MEDS: OxyconTIN ER 20 MG TAB.ER PO SCH ×2 (05:42→16:18)
[2017-08-21] MEDS: LEVOTHYROXINE 150 MCG TABLET PO SCH (05:43)
[2017-08-21 05:45] LABS: BASOPHILS # (AUTO) 0.02 x10^3/uL (0-0.1); BASOPHILS % (AUTO) 0 % (0-1); EOSINOPHILS % (AUTO) 0 % (1-7); LYMPHOCYTES # (AUTO) 0.66 x10^3/uL (1-3.4); LYMPHOCYTES % (AUTO) 10 % (22-44); MD NO; MEAN CORPUSCULAR HEMOGLOBIN 29.6 pg (27.0-34.8); MEAN CORPUSCULAR HGB CONC 33.2 g/dL (32.4-35.8); MEAN CORPUSCULAR VOLUME 89.2 fL (80-100); MEAN PLATELET VOLUME 7.7 fL (7.4-10.4); MONOCYTES # (AUTO) 0.56 x10^3/uL (0.2-0.8); MONOCYTES % (AUTO) 8 % (2-9); NEUTROPHILS % (AUTO) 82 % (42-75); PLATELET COUNT 331 x10^3/uL (130-400)
[2017-08-21 05:54] LABS: CALCIUM 7.2 mg/dL (8.5-10.1); CREATININE 0.35 mg/dL (0.55-1.02)
[2017-08-21 06:40] LABS: ANION GAP 6 mmol/L (5-15); CHLORIDE 93 mmol/L (98-107)
[2017-08-21] MEDS ORDERED: POTASSIUM PHOSPHATE 44 MEQ in SODIUM CHLORIDE 0.9% 500 ML IV ONE ×2 (07:00→09:00)
[2017-08-21] MEDS ORDERED: POTASSIUM CHLORIDE 40 MEQ in SODIUM CHLORIDE 0.9% 500 ML IV ONE ×2 (07:00→09:00)
[2017-08-21 08:17] VITALS: BP 138/78
[2017-08-21] MEDS: HEPARIN 5,000 UNITS/ML, 1ML SQ SCH ×3 (08:17→21:55)
[2017-08-21] MEDS: FAMOTIDINE 20 MG/2 ML IVPush SCH ×2 (08:17→21:55)
[2017-08-21] MEDS: METOCLOPRAMIDE 5 MG/ML, 2ML IVPush SCH ×3 (08:17→21:55)
[2017-08-21] MEDS ORDERED: PROMETHAZINE 25 MG/ML, 1ML IM PRN (09:30)
[2017-08-21] MEDS: POTASSIUM CHLORIDE 20 MEQ TAB.ER.PRT PO SCH ×3 (09:53→21:55)
[2017-08-21] MEDS: MAGNESIUM CHLORIDE 64 MG TABLET.DR PO SCH ×2 (09:53→21:55)
[2017-08-21] MEDS: ATENOLOL 100 MG TABLET PO SCH (09:53)
[2017-08-21] MEDS: FENOFIBRATE 145 MG TABLET PO SCH (09:53)
[2017-08-21 12:48] VITALS: BP 127/67
[2017-08-21] MEDS: SODIUM CHLORIDE 0.9% 2,000 ML IV SCH (16:18)
[2017-08-21 20:00] VITALS: BP 138/69
[2017-08-22 02:00] VITALS: BP 136/66
[2017-08-22] MEDS: OxyconTIN ER 20 MG TAB.ER PO SCH ×2 (04:43→16:24)
[2017-08-22] MEDS: PIPERACILLIN/TAZO/PMX 3.375GM 50 ML IV SCH ×4 (04:43→20:50)
[2017-08-22] MEDS: METOCLOPRAMIDE 5 MG/ML, 2ML IVPush SCH ×4 (04:43→20:50)
[2017-08-22 05:20] LABS: ANION GAP 8 mmol/L (5-15); CALCIUM 7.2 mg/dL (8.5-10.1); CHLORIDE 93 mmol/L (98-107)
[2017-08-22 05:33] LABS: CREATININE 0.29 mg/dL (0.55-1.02)
[2017-08-22] MEDS: LEVOTHYROXINE 150 MCG TABLET PO SCH (06:15)
[2017-08-22 07:25] VITALS: BP 143/70
[2017-08-22] MEDS: MAGNESIUM CHLORIDE 64 MG TABLET.DR PO SCH ×2 (09:31→20:51)
[2017-08-22] MEDS: FENOFIBRATE 145 MG TABLET PO SCH (09:31)
[2017-08-22] MEDS: POTASSIUM CHLORIDE 20 MEQ TAB.ER.PRT PO SCH ×3 (09:31→20:51)
[2017-08-22] MEDS: ATENOLOL 100 MG TABLET PO SCH (09:31)
[2017-08-22] MEDS: FAMOTIDINE 20 MG/2 ML IVPush SCH ×2 (09:31→20:51)
[2017-08-22] MEDS: HEPARIN 5,000 UNITS/ML, 1ML SQ SCH ×3 (09:32→20:51)
[2017-08-22] MEDS ORDERED: POTASSIUM PHOSPHATE 44 MEQ in SODIUM CHLORIDE 0.9% 500 ML IV ONE (11:00)
[2017-08-22] MEDS ORDERED: POTASSIUM CHLORIDE 40 MEQ in SODIUM CHLORIDE 0.9% 500 ML IV ONE ×2 (11:00→21:00)
[2017-08-22 13:11] VITALS: BP 131/67
[2017-08-22 20:00] VITALS: BP 140/67
[2017-08-22] MEDS: SODIUM CHLORIDE 0.9% 2,000 ML IV SCH (20:51)
[2017-08-23] MEDS: morphine SULFATE 10 MG/ML, 1ML IVPush PRN (01:17)
[2017-08-23 02:00] VITALS: BP 145/64
[2017-08-23] MEDS: PIPERACILLIN/TAZO/PMX 3.375GM 50 ML IV SCH ×3 (04:28→17:19)
[2017-08-23] MEDS: OxyconTIN ER 20 MG TAB.ER PO SCH ×2 (04:28→17:18)
[2017-08-23] MEDS: METOCLOPRAMIDE 5 MG/ML, 2ML IVPush SCH ×4 (04:28→22:20)
[2017-08-23 05:04] LABS: ANION GAP 8 mmol/L (5-15); CALCIUM 7.3 mg/dL (8.5-10.1); CHLORIDE 92 mmol/L (98-107); CREATININE 0.34 mg/dL (0.55-1.02)
[2017-08-23] MEDS: LEVOTHYROXINE 150 MCG TABLET PO SCH (06:05)
[2017-08-23 07:59] VITALS: BP 124/64
[2017-08-23] MEDS: FAMOTIDINE 20 MG/2 ML IVPush SCH ×2 (09:05→22:20)
[2017-08-23] MEDS: ATENOLOL 100 MG TABLET PO SCH (09:06)
[2017-08-23] MEDS: MAGNESIUM CHLORIDE 64 MG TABLET.DR PO SCH ×2 (09:06→22:20)
[2017-08-23] MEDS: POTASSIUM CHLORIDE 20 MEQ TAB.ER.PRT PO SCH ×3 (09:06→22:20)
[2017-08-23] MEDS: HEPARIN 5,000 UNITS/ML, 1ML SQ SCH ×3 (09:06→22:20)
[2017-08-23] MEDS: FENOFIBRATE 145 MG TABLET PO SCH (09:06)
[2017-08-23] MEDS ORDERED: MAGNESIUM SULFATE PMX 2GM/50ML 50 ML IV ONE (09:30)
[2017-08-23] MEDS ORDERED: POTASSIUM CHLORIDE 40 MEQ in SODIUM CHLORIDE 0.9% 500 ML IV ONE ×3 (09:30→23:00)
[2017-08-23] MEDS: LIOTHYRONINE 5 MCG TABLET PO SCH (11:19)
[2017-08-23] MEDS: ONDANSETRON 2MG/ML, 2ML IVPush PRN (11:35)
[2017-08-23 12:53] VITALS: BP 153/67
[2017-08-23 19:12] VITALS: BP 132/75
[2017-08-23] MEDS: SODIUM CHLORIDE 0.9% 2,000 ML IV SCH (22:20)
[2017-08-23] MEDS: PIPERACILLIN/TAZO 3.375 GM in SODIUM CHLORIDE 0.9% 50 ML IV SCH (22:20)
[2017-08-24 02:16] VITALS: BP 137/69
[2017-08-24] MEDS: METOCLOPRAMIDE 5 MG/ML, 2ML IVPush SCH ×4 (05:09→22:34)
[2017-08-24] MEDS: OxyconTIN ER 20 MG TAB.ER PO SCH (05:09)
[2017-08-24] MEDS: PIPERACILLIN/TAZO 3.375 GM in SODIUM CHLORIDE 0.9% 50 ML IV SCH ×4 (05:10→22:34)
[2017-08-24] MEDS: LEVOTHYROXINE 150 MCG TABLET PO SCH (05:14)
[2017-08-24] MEDS ORDERED: POTASSIUM CHLORIDE 40 MEQ in SODIUM CHLORIDE 0.9% 500 ML IV ONE ×3 (07:30→23:30)
[2017-08-24 07:59] VITALS: BP 159/71
[2017-08-24 08:15] LABS: ANION GAP 6 mmol/L (5-15); CALCIUM 7.8 mg/dL (8.5-10.1); CHLORIDE 96 mmol/L (98-107)
[2017-08-24 08:16] LABS: CREATININE 0.44 mg/dL (0.55-1.02)
[2017-08-24] MEDS: LIOTHYRONINE 5 MCG TABLET PO SCH (08:47)
[2017-08-24] MEDS: POTASSIUM CHLORIDE 20 MEQ TAB.ER.PRT PO SCH ×3 (08:47→21:10)
[2017-08-24] MEDS: FAMOTIDINE 20 MG/2 ML IVPush SCH ×2 (08:47→21:09)
[2017-08-24] MEDS: MAGNESIUM CHLORIDE 64 MG TABLET.DR PO SCH ×2 (08:48→21:10)
[2017-08-24] MEDS: FENOFIBRATE 145 MG TABLET PO SCH (08:48)
[2017-08-24] MEDS: HEPARIN 5,000 UNITS/ML, 1ML SQ SCH ×3 (08:48→21:10)
[2017-08-24] MEDS: ATENOLOL 100 MG TABLET PO SCH (08:55)
[2017-08-24 13:26] VITALS: BP 169/78
[2017-08-24 19:52] VITALS: BP 135/76
[2017-08-24] MEDS: SODIUM CHLORIDE 0.9% 2,000 ML IV SCH (22:34)
[2017-08-25 01:28] VITALS: BP 144/82
[2017-08-25] MEDS: PIPERACILLIN/TAZO 3.375 GM in SODIUM CHLORIDE 0.9% 50 ML IV SCH ×4 (04:23→22:12)
[2017-08-25] MEDS: METOCLOPRAMIDE 5 MG/ML, 2ML IVPush SCH ×4 (04:23→22:12)
[2017-08-25] MEDS: LEVOTHYROXINE 150 MCG TABLET PO SCH (05:22)
[2017-08-25 05:41] LABS: BASOPHILS # (AUTO) 0.02 x10^3/uL (0-0.1); BASOPHILS % (AUTO) 0 % (0-1); EOSINOPHILS # (AUTO) 0.02 x10^3/uL (0-0.4); EOSINOPHILS % (AUTO) 0 % (1-7); LYMPHOCYTES # (AUTO) 0.85 x10^3/uL (1-3.4); LYMPHOCYTES % (AUTO) 15 % (22-44); MD NO; MEAN CORPUSCULAR HEMOGLOBIN 30.2 pg (27.0-34.8); MEAN PLATELET VOLUME 7.8 fL (7.4-10.4); MONOCYTES # (AUTO) 0.56 x10^3/uL (0.2-0.8); MONOCYTES % (AUTO) 10 % (2-9); NEUTROPHILS # (AUTO) 4.16 x10^3/uL (1.8-6.8); NEUTROPHILS % (AUTO) 74 % (42-75); PLATELET COUNT 322 x10^3/uL (130-400); RED CELL DISTRIBUTION WIDTH 17.1 % (9.6-15.2)
[2017-08-25 05:50] LABS: ANION GAP 7 mmol/L (5-15); CHLORIDE 97 mmol/L (98-107)
[2017-08-25 06:01] LABS: CREATININE 0.42 mg/dL (0.55-1.02)
[2017-08-25 08:00] VITALS: BP 133/74
[2017-08-25] MEDS ORDERED: POTASSIUM CHLORIDE 40 MEQ in SODIUM CHLORIDE 0.9% 500 ML IV ONE (08:00)
[2017-08-25] MEDS ORDERED: MAGNESIUM SULFATE PMX 2GM/50ML 50 ML IV ONE ×2 (08:00→13:30)
[2017-08-25] MEDS: ERGOCALCIFEROL 50,000 UNIT CAPSULE PO SCH (09:26)
[2017-08-25] MEDS: LACTOBACILLUS CHEW TABLET PO SCH ×3 (09:26→21:18)
[2017-08-25] MEDS: MAGNESIUM CHLORIDE 64 MG TABLET.DR PO SCH ×2 (09:26→21:18)
[2017-08-25] MEDS: ATENOLOL 100 MG TABLET PO SCH (09:26)
[2017-08-25] MEDS: POTASSIUM CHLORIDE 20 MEQ TAB.ER.PRT PO SCH ×3 (09:26→21:18)
[2017-08-25] MEDS: FENOFIBRATE 145 MG TABLET PO SCH (09:26)
[2017-08-25] MEDS: HEPARIN 5,000 UNITS/ML, 1ML SQ SCH ×3 (09:27→21:17)
[2017-08-25] MEDS: FAMOTIDINE 20 MG/2 ML IVPush SCH ×2 (09:27→21:17)
[2017-08-25 13:55] VITALS: BP 136/76
[2017-08-25 20:30] VITALS: BP 146/71
[2017-08-26 03:55] VITALS: BP 149/73
[2017-08-26] MEDS: METOCLOPRAMIDE 5 MG/ML, 2ML IVPush SCH ×4 (04:10→22:00)
[2017-08-26] MEDS: PIPERACILLIN/TAZO 3.375 GM in SODIUM CHLORIDE 0.9% 50 ML IV SCH ×4 (04:10→22:00)
[2017-08-26 05:46] LABS: ANION GAP 8 mmol/L (5-15); CHLORIDE 99 mmol/L (98-107)
[2017-08-26 05:47] LABS: CREATININE 0.49 mg/dL (0.55-1.02)
[2017-08-26] MEDS: LEVOTHYROXINE 175 MCG TABLET PO SCH (06:20)
[2017-08-26 07:28] VITALS: BP 166/70
[2017-08-26] MEDS: SODIUM CHLORIDE 0.9% 2,000 ML IV SCH (08:00)
[2017-08-26] MEDS: FENOFIBRATE 145 MG TABLET PO SCH (09:20)
[2017-08-26] MEDS: LACTOBACILLUS CHEW TABLET PO SCH ×3 (09:20→21:00)
[2017-08-26] MEDS: POTASSIUM CHLORIDE 20 MEQ TAB.ER.PRT PO SCH ×3 (09:20→21:00)
[2017-08-26] MEDS: MAGNESIUM CHLORIDE 64 MG TABLET.DR PO SCH ×2 (09:20→21:00)
[2017-08-26] MEDS: ATENOLOL 100 MG TABLET PO SCH (09:20)
[2017-08-26] MEDS: HEPARIN 5,000 UNITS/ML, 1ML SQ SCH ×3 (09:21→21:00)
[2017-08-26] MEDS: FAMOTIDINE 20 MG/2 ML IVPush SCH ×2 (09:21→21:00)
[2017-08-26] MEDS: OXYcodone IR 5MG TABLET PO PRN (10:28)
[2017-08-26] MEDS ORDERED: POTASSIUM CHLORIDE 40 MEQ in SODIUM CHLORIDE 0.9% 500 ML IV ONE (12:00)
[2017-08-26 14:02] VITALS: BP 123/69
[2017-08-26 19:12] VITALS: BP 129/71
[2017-08-26] MEDS: PANTOPROZOLE 40MG TABLET PO SCH (21:00)
[2017-08-27 02:00] VITALS: BP 131/89
[2017-08-27] MEDS: PIPERACILLIN/TAZO 3.375 GM in SODIUM CHLORIDE 0.9% 50 ML IV SCH ×4 (04:00→23:50)
[2017-08-27] MEDS: METOCLOPRAMIDE 5 MG/ML, 2ML IVPush SCH ×4 (04:00→23:50)
[2017-08-27] MEDS: SODIUM CHLORIDE 0.9% 2,000 ML IV SCH (04:48)
[2017-08-27] MEDS: OXYcodone IR 5MG TABLET PO PRN ×3 (04:48→15:50)
[2017-08-27 05:29] LABS: CHLORIDE 102 mmol/L (98-107)
[2017-08-27 05:37] LABS: ANION GAP 8 mmol/L (5-15); CALCIUM 8.4 mg/dL (8.5-10.1); CREATININE 0.59 mg/dL (0.55-1.02)
[2017-08-27] MEDS: LEVOTHYROXINE 175 MCG TABLET PO SCH (06:20)
[2017-08-27 06:41] VITALS: BP 153/84
[2017-08-27] MEDS: FENOFIBRATE 145 MG TABLET PO SCH (09:10)
[2017-08-27] MEDS: PANTOPROZOLE 40MG TABLET PO SCH ×2 (09:10→23:49)
[2017-08-27] MEDS: POTASSIUM CHLORIDE 20 MEQ TAB.ER.PRT PO SCH ×3 (09:10→23:49)
[2017-08-27] MEDS: MAGNESIUM CHLORIDE 64 MG TABLET.DR PO SCH ×2 (09:10→23:49)
[2017-08-27] MEDS: LACTOBACILLUS CHEW TABLET PO SCH ×3 (09:10→23:49)
[2017-08-27] MEDS: ATENOLOL 100 MG TABLET PO SCH (09:10)
[2017-08-27] MEDS: HEPARIN 5,000 UNITS/ML, 1ML SQ SCH ×3 (09:11→23:50)
[2017-08-27] MEDS: FAMOTIDINE 20 MG/2 ML IVPush SCH ×2 (09:11→20:20)
[2017-08-27] MEDS ORDERED: MAGNESIUM SULFATE PMX 2GM/50ML 50 ML IV ONE (12:00)
[2017-08-27 12:51] VITALS: BP 116/67
[2017-08-27 19:10] VITALS: BP 113/61
[2017-08-28 01:09] VITALS: BP 109/62
[2017-08-28] MEDS: SODIUM CHLORIDE 0.9% 2,000 ML IV SCH (03:01)
[2017-08-28 05:36] LABS: ANION GAP 7 mmol/L (5-15); CALCIUM 7.9 mg/dL (8.5-10.1); CHLORIDE 102 mmol/L (98-107); CREATININE 0.71 mg/dL (0.55-1.02)
[2017-08-28] MEDS: PIPERACILLIN/TAZO 3.375 GM in SODIUM CHLORIDE 0.9% 50 ML IV SCH ×2 (06:03→11:06)
[2017-08-28] MEDS: METOCLOPRAMIDE 5 MG/ML, 2ML IVPush SCH ×2 (06:03→11:07)
[2017-08-28] MEDS: LEVOTHYROXINE 175 MCG TABLET PO SCH (06:03)
[2017-08-28 07:00] VITALS: BP 136/74
[2017-08-28] MEDS: PANTOPROZOLE 40MG TABLET PO SCH (07:41)
[2017-08-28] MEDS: MAGNESIUM CHLORIDE 64 MG TABLET.DR PO SCH (07:41)
[2017-08-28] MEDS: POTASSIUM CHLORIDE 20 MEQ TAB.ER.PRT PO SCH (07:41)
[2017-08-28] MEDS: LACTOBACILLUS CHEW TABLET PO SCH (07:41)
[2017-08-28] MEDS: ATENOLOL 100 MG TABLET PO SCH (07:42)
[2017-08-28] MEDS: FENOFIBRATE 145 MG TABLET PO SCH (07:42)
[2017-08-28] MEDS: FAMOTIDINE 20 MG/2 ML IVPush SCH (07:42)
[2017-08-28] MEDS: HEPARIN 5,000 UNITS/ML, 1ML SQ SCH (07:42)
[2017-08-28] MEDS ORDERED: ERGO500017 PO (11:46)
[2017-08-28] MEDS ORDERED: MAGN64TA9 PO (11:46)
[2017-08-28] MEDS ORDERED: POTA20TA6 PO (11:46)
[2017-08-28] MEDS ORDERED: POLY17PO5 PO (11:46)
[2017-08-28] MEDS ORDERED: LEVO175T2 PO (11:46)
[2017-08-28] MEDS ORDERED: OXYC5TAB3 PO (11:46)
[2017-08-28] MEDS ORDERED: PANT40TA5 PO (11:46)
[2017-08-28] MEDS ORDERED: DOCU-131 PO (11:46)
[2017-08-28 13:08] VITALS: BP 118/67
[2017-08-28] MEDS: OXYcodone IR 5MG TABLET PO PRN (14:57)
== END 2017-08-28 16:10 | disposition home or self-care (01) | DRG 329 ==
LOC: ORIP 09:08 → EDSTATUS 11:00 → 4WST 14:41 → 4NOR 08-15 20:39 → CCU 08-16 14:26 → ICU 08-17 20:36 → 5SO 08-19 05:40 → 4WST 08-19 13:55 → 3NW 08-27 06:14
PROVIDERS: ADMIT Surgery; ATTEND Surgery
PROC: 30233N1 Transfusion of Nonautologous Red Blood Cells into Peripheral Vein, Percutaneous Approach (ICD-10-PCS; 2017-08-14)
PROC: 0DTP0ZZ Resection of Rectum, Open Approach (ICD-10-PCS; 2017-08-16)
PROC: 0D1N0Z4 Bypass Sigmoid Colon to Cutaneous, Open Approach (ICD-10-PCS; 2017-08-16)
PROC: 0DBN0ZZ Excision of Sigmoid Colon, Open Approach (ICD-10-PCS; 2017-08-16)
PROC: 4A133B1 Monitoring of Arterial Pressure, Peripheral, Percutaneous Approach (ICD-10-PCS; 2017-08-16)
PROC: 4A133J1 Monitoring of Arterial Pulse, Peripheral, Percutaneous Approach (ICD-10-PCS; 2017-08-16)
PROC: 02HV33Z Insertion of Infusion Device into Superior Vena Cava, Percutaneous Approach (ICD-10-PCS; 2017-08-16)
PROC: 0DJD4ZZ Inspection of Lower Intestinal Tract, Percutaneous Endoscopic Approach (ICD-10-PCS; 2017-08-16)
PROC: 8E0W4CZ Robotic Assisted Procedure of Trunk Region, Percutaneous Endoscopic Approach (ICD-10-PCS; 2017-08-16)
PROC: 03HY32Z Insertion of Monitoring Device into Upper Artery, Percutaneous Approach (ICD-10-PCS; principal; 2017-08-16 09:00)
PROC: BD11ZZZ Fluoroscopy of Esophagus (ICD-10-PCS; 2017-08-26)
DX: C78.5 Secondary malignant neoplasm of large intestine and rectum (principal); E43 Unspecified severe protein-calorie malnutrition; K63.1 Perforation of intestine (nontraumatic); J96.00 Acute respiratory failure, unspecified whether with hypoxia or hypercapnia; I95.9 Hypotension, unspecified; E83.39 Other disorders of phosphorus metabolism; K92.1 Melena; D64.9 Anemia, unspecified; R13.10 Dysphagia, unspecified; I10 Essential (primary) hypertension; E87.6 Hypokalemia; D72.829 Elevated white blood cell count, unspecified; E03.9 Hypothyroidism, unspecified; E78.1 Pure hyperglyceridemia; E55.9 Vitamin D deficiency, unspecified; Z51.5 Encounter for palliative care; Z82.5 Family history of asthma and other chronic lower respiratory diseases; Z85.048 Personal history of other malignant neoplasm of rectum, rectosigmoid junction, and anus; Z68.23 Body mass index [BMI] 23.0-23.9, adult; Z85.42 Personal history of malignant neoplasm of other parts of uterus; Z90.710 Acquired absence of both cervix and uterus; Z88.6 Allergy status to analgesic agent; Z90.722 Acquired absence of ovaries, bilateral; Z90.79 Acquired absence of other genital organ(s); Z92.3 Personal history of irradiation; Z90.49 Acquired absence of other specified parts of digestive tract; Z90.89 Acquired absence of other organs; Z79.899 Other long term (current) drug therapy
CPT/HCPCS: 36415; 36600; 71010; 74220; 80048; 80053; 80061; 81001; 82306; 82530; 82533; 82607; 82728; 82803; 82805; 83036; 83540; 83550; 83735; 84100; 84132; 84439; 84443; 84466; 84478; 84481; 85014; 85018; 85025; 85610; 85730; 86850; 86900; 86923; 87081; 87086; 88112; 88305; 88307; 88309; 88341; 88342; 88360; 93005; 94002; 94003; 94150; 94640; C1729; J0171; J1100; J1644; J1756; J2250; J2405; J2543; J2704; J2795; J3010; J3480; J3490; J7620; C1760; G0461; J0330; J2270; J2765; J3475; J7030; J7040; J7120; P9016; S0028; S0074